=== PATIENT | female | born 1990 | race Caucasian/White ===

== ENCOUNTER 2019-12-02 08:31 | Emergency (ER) | payer OTHER ==
[2019-12-02 08:37] VITALS: BP 160/97; PULSE 67; RESP 18; TEMP 98
--- NOTE | 2019-12-02 08:41 | ED ---
Recheck HPI - General Chief Complaint: Recheck/Abnormal Lab/Rx Stated Complaint: [facility] - sent for Covid testing Time Seen by Provider: 12/02/19 08:39 Source: patient, RN notes reviewed Mode of arrival: ambulatory Limitations: no limitations - History of Present Illness Initial Comments: 29-year-old female presents emergency Department chief complaint of needing Covid testing. Patient sent by work for Covid testing. Patient was exposed secondary. Patient is asymptomatic. Patient may not return to work until tested. Patient offers no other complaints. - Related Data Allergies Allergy/AdvReac Type Severity Reaction Status Date / Time No Known Allergies Allergy Verified 12/02/19 08:37 Review of Systems ROS Statement: Those systems with pertinent positive or pertinent negative responses have been documented in the HPI. ROS Other: All systems not noted in ROS Statement are negative. Past Medical History Past Medical History: No Reported History History of Any Multi-Drug Resistant Organisms: None Reported Past Surgical History: No Surgical Hx Reported Past Psychological History: No Psychological Hx Reported Smoking Status: Never smoker Past Alcohol Use History: Occasional Past Drug Use History: None Reported General Exam Limitations: no limitations General appearance: alert, in no apparent distress Head exam: Present: atraumatic, normocephalic, normal inspection Eye exam: Present: normal appearance, PERRL, EOMI. Absent: scleral icterus, conjunctival injection, periorbital swelling Neck exam: Present: normal inspection. Absent: tenderness, meningismus, lymphadenopathy Respiratory exam: Present: normal lung sounds bilaterally. Absent: respiratory distress, wheezes, rales, rhonchi, stridor Cardiovascular Exam: Present: regular rate, normal rhythm, normal heart sounds. Absent: systolic murmur, diastolic murmur, rubs, gallop, clicks Course Vital Signs 12/02/19 08:32 Temperature 98 F Pulse Rate 67 Respiratory 18 Rate Blood Pressure 160/97 O2 Sat by Pulse 97 Oximetry Medical Decision Making - Medical Decision Making CoVID testing was performed. Pending results patient informed that it takes several days. Disposition Clinical Impression: COVID-19 virus test result unknown Disposition: HOME SELF-CARE Condition: Stable Additional Instructions: Please return to the Emergency Department if symptoms worsen or any other concerns. Is patient prescribed a controlled substance at d/c from ED?: No Referrals: None,Stated [Primary Care Provider] - 1-2 days Time of Disposition: 08:41
== END 2019-12-02 08:42 | disposition home or self-care (01) ==
LOC: EC 08:31
DX: Z03.818 Encounter for observation for suspected exposure to other biological agents ruled out (principal)
CPT/HCPCS: 99283; U0003

== ENCOUNTER 2020-11-21 16:43 | Emergency (ER) | payer BC ==
[2020-11-21 17:13] VITALS: RESP 18
[2020-11-21 18:30] LABS: Basophils % (A) 0 %; Eosinophils # (A) 0.1 k/uL (0-0.7); Eosinophils % (A) 1 %; HCT 41.5 % (34.0-46.0); HGB 14.2 gm/dL (11.4-16.0); Lymphocytes # (A) 2.3 k/uL (1.0-4.8); Lymphocytes % (A) 37 %; MCH 30.5 pg (25.0-35.0); MCHC 34.2 g/dL (31.0-37.0); MCV 89.5 fL (80.0-100.0); Mean Platelet Volume 7.8; Monocytes # (A) 0.4 k/uL (0-1.0); Monocytes % (A) 6 %; Neutrophils # (A) 3.4 k/uL (1.3-7.7); Neutrophils % (A) 54 %; Platelet Count 252 k/uL (150-450); RBC 4.64 m/uL (3.80-5.40); WBC 6.2 k/uL (3.8-10.6)
[2020-11-21 18:39] LABS: Prothrombin Time 10.9 sec (9.0-12.0)
[2020-11-21 18:40] LABS: ALT 15 U/L (4-34); AST 21 U/L (14-36); African American GFR (CKD) >90 (>60 ml/min/1.73 sqM); Albumin 4.4 g/dL (3.5-5.0); Alkaline Phosphatase 54 U/L (38-126); Anion Gap 9 mmol/L; Blood Urea Nitrogen 11 mg/dL (7-17); Calcium 9.6 mg/dL (8.4-10.2); Carbon Dioxide 26 mmol/L (22-30); Chloride 104 mmol/L (98-107); Glucose 91 mg/dL (74-99); Non-African American GFR(CKD) 88 (>60 ml/min/1.73 sqM); Partial Thromboplastin Time 24.4 sec (22.0-30.0); Potassium 4.3 mmol/L (3.5-5.1); Sodium 139 mmol/L (137-145); Total Bilirubin 0.9 mg/dL (0.2-1.3); Total Protein 7.4 g/dL (6.3-8.2)
--- NOTE | 2020-11-21 18:57 | XR ---
EXAMINATION TYPE: XR chest 2V DATE OF EXAM: 11/21/2020 COMPARISON: NONE HISTORY: Syncope TECHNIQUE: Frontal and lateral views of the chest are obtained. FINDINGS: There is no focal air space opacity, pleural effusion, or pneumothorax seen. The cardiome diastinal silhouette size is within normal limits. The osseous structures are intact. IMPRESSION: No acute cardiopulmonary process.
--- NOTE | 2020-11-21 18:58 | ED ---
General Adult HPI - General Chief complaint: Syncope Stated complaint: syncope, hit head Time Seen by Provider: 11/21/20 18:56 Source: patient, family Mode of arrival: ambulatory Limitations: no limitations - History of Present Illness Initial comments: Patient presents to the ED with her significant other for evaluation. Patient states that she was outside tailgating for the [employer] game at about 11 AM this morning when she became lightheaded and "fainted". Patient's significant other states that he was with the patient and witnessed her syncopal episode. He states that she hit her head on the car and then on the ground as she fell down. He states that her LOC was very brief, and lasted just a few seconds. Patient states that she has had a headache and nausea since this incident. Patient states that she was out in the heat and did have a couple of alcoholic beverages when she had her syncopal episode earlier today. Patient denies any other site of pain, fever or chills, focal numbness/weakness/neuro deficit, visual changes, speech difficulty, neck/back/extremity pain, chest pain, dyspnea, cough or cold symptoms, palpitations, abdominal pain, vomiting or diarrhea, bloody or melanotic stool, dysuria or urinary symptoms, or any other symptoms or complaints. - Related Data Home Medications Medication Instructions Recorded Confirmed No Known Home Medications 11/21/20 11/21/20 Allergies Allergy/AdvReac Type Severity Reaction Status Date / Time No Known Allergies Allergy Verified 11/21/20 20:09 Review of Systems ROS Statement: Those systems with pertinent positive or pertinent negative responses have been documented in the HPI. ROS Other: All systems not noted in ROS Statement are negative. Past Medical History Past Medical History: No Reported History History of Any Multi-Drug Resistant Organisms: None Reported Past Surgical History: No Surgical Hx Reported Past Psychological History: No Psychological Hx Reported Smoking Status: Never smoker Past Alcohol Use History: Occasional Past Drug Use History: Marijuana General Exam Limitations: no limitations General appearance: alert, in no apparent distress Head exam: Present: atraumatic, normocephalic Eye exam: Present: normal appearance, PERRL, EOMI ENT exam: Present: mucous membranes moist Neck exam: Present: other (Trachea is in midline). Absent: tenderness Respiratory exam: Present: normal lung sounds bilaterally. Absent: respiratory distress, wheezes, rales, rhonchi, stridor Cardiovascular Exam: Present: regular rate, normal rhythm, normal heart sounds, other (Normal radial pulses bilaterally) GI/Abdominal exam: Present: soft. Absent: distended, tenderness, guarding Extremities exam: Present: full ROM. Absent: tenderness, pedal edema, calf tenderness Back exam: Present: full ROM. Absent: tenderness Neurological exam: Present: alert, oriented X3, CN II-XII intact. Absent: motor sensory deficit Psychiatric exam: Present: normal affect, normal mood Skin exam: Present: warm, dry, intact, normal color Course Vital Signs 11/21/20 11/21/20 17:11 19:35 Temperature 98.2 F Pulse Rate 71 64 Respiratory 18 18 Rate Blood Pressure 131/83 151/101 O2 Sat by Pulse 98 98 Oximetry - Reevaluation(s) Reevaluation #1: 11/21/20 20:58 Patient denies development of any new symptoms while in the ED. Patient remains alert and breathing comfortably. Patient and significant other are aware the patient's test results, and patient feels comfortable going home with her significant other at this time. Patient was counseled about syncope and head injuries, and she was clearly explained return and follow-up instructions. Patient was instructed to follow up closely with her primary care provider. Patient feels comfortable with this plan. EKG Findings - EKG Comments: EKG Findings:: Normal sinus rhythm, ventricular rate of 72 bpm, no ectopy, normal TX and QRS intervals, normal QT interval, normal axis, no ST or T-wave abnormality Medical Decision Making - Medical Decision Making Patient's labs and imaging studies, including head CT imaging, are all negative. Patient's EKG is unremarkable. I suspect a benign etiology of the patient's syncopal episode, and I do not suspect an emergent medical condition at this time. Patient was counseled about head injuries and syncope. Will discharge patient home with her significant other at this time. - Lab Data Result diagrams: 11/21/20 18:10 11/21/20 18:10 Lab Results 11/21/20 11/21/20 11/21/20 Range/Units 18:10 18:10 18:10 WBC 6.2 (3.8-10.6) k/uL RBC 4.64 (3.80-5.40) m/uL Hgb 14.2 (11.4-16.0) gm/dL Hct 41.5 (34.0-46.0) % MCV 89.5 (80.0-100.0) fL MCH 30.5 (25.0-35.0) pg MCHC 34.2 (31.0-37.0) g/dL RDW 12.0 (11.5-15.5) % Plt Count 252 (150-450) k/uL MPV 7.8 Neutrophils % 54 % Lymphocytes % 37 % Monocytes % 6 % Eosinophils % 1 % Basophils % 0 % Neutrophils # 3.4 (1.3-7.7) k/uL Lymphocytes # 2.3 (1.0-4.8) k/uL Monocytes # 0.4 (0-1.0) k/uL Eosinophils # 0.1 (0-0.7) k/uL Basophils # 0.0 (0-0.2) k/uL PT 10.9 (9.0-12.0) sec INR 1.0 (<1.2) APTT 24.4 (22.0-30.0) sec D-Dimer <0.17 (<0.60) mg/L FEU Sodium 139 (137-145) mmol/L Potassium 4.3 (3.5-5.1) mmol/L Chloride 104 (98-107) mmol/L Carbon Dioxide 26 (22-30) mmol/L Anion Gap 9 mmol/L BUN 11 (7-17) mg/dL Creatinine 0.88 (0.52-1.04) mg/dL Est GFR (CKD-EPI)AfAm >90 (>60 ml/min/1.73 sqM) Est GFR (CKD-EPI)NonAf 88 (>60 ml/min/1.73 sqM) Glucose 91 (74-99) mg/dL Calcium 9.6 (8.4-10.2) mg/dL Total Bilirubin 0.9 (0.2-1.3) mg/dL AST 21 (14-36) U/L ALT 15 (4-34) U/L Alkaline Phosphatase 54 (38-126) U/L Troponin I (0.000-0.034) ng/mL Total Protein 7.4 (6.3-8.2) g/dL Albumin 4.4 (3.5-5.0) g/dL Urine Color Urine Appearance (Clear) Urine pH (5.0-8.0) Ur Specific Mcintosh (1.001-1.035) Urine Protein (Negative) Urine Glucose (UA) (Negative) Urine Ketones (Negative) Urine Blood (Negative) Urine Nitrite (Negative) Urine Bilirubin (Negative) Urine Urobilinogen (<2.0) mg/dL Ur Leukocyte Esterase (Negative) Urine HCG, Qual (Not Detectd) 11/21/20 11/21/20 11/21/20 Range/Units 18:10 19:27 19:27 WBC (3.8-10.6) k/uL RBC (3.80-5.40) m/uL Hgb (11.4-16.0) gm/dL Hct (34.0-46.0) % MCV (80.0-100.0) fL MCH (25.0-35.0) pg MCHC (31.0-37.0) g/dL RDW (11.5-15.5) % Plt Count (150-450) k/uL MPV Neutrophils % % Lymphocytes % % Monocytes % % Eosinophils % % Basophils % % Neutrophils # (1.3-7.7) k/uL Lymphocytes # (1.0-4.8) k/uL Monocytes # (0-1.0) k/uL Eosinophils # (0-0.7) k/uL Basophils # (0-0.2) k/uL PT (9.0-12.0) sec INR (<1.2) APTT (22.0-30.0) sec D-Dimer (<0.60) mg/L FEU Sodium (137-145) mmol/L Potassium (3.5-5.1) mmol/L Chloride (98-107) mmol/L Carbon Dioxide (22-30) mmol/L Anion Gap mmol/L BUN (7-17) mg/dL Creatinine (0.52-1.04) mg/dL Est GFR (CKD-EPI)AfAm (>60 ml/min/1.73 sqM) Est GFR (CKD-EPI)NonAf (>60 ml/min/1.73 sqM) Glucose (74-99) mg/dL Calcium (8.4-10.2) mg/dL Total Bilirubin (0.2-1.3) mg/dL AST (14-36) U/L ALT (4-34) U/L Alkaline Phosphatase (38-126) U/L Troponin I <0.012 (0.000-0.034) ng/mL Total Protein (6.3-8.2) g/dL Albumin (3.5-5.0) g/dL Urine Color Light Yellow Urine Appearance Clear (Clear) Urine pH 7.5 (5.0-8.0) Ur Specific Mcintosh 1.011 (1.001-1.035) Urine Protein Negative (Negative) Urine Glucose (UA) Negative (Negative) Urine Ketones Negative (Negative) Urine Blood Negative (Negative) Urine Nitrite Negative (Negative) Urine Bilirubin Negative (Negative) Urine Urobilinogen <2.0 (<2.0) mg/dL Ur Leukocyte Esterase Negative (Negative) Urine HCG, Qual Not Detected (Not Detectd) - Radiology Data Radiology results: report reviewed (Chest x-ray: No acute cardiopulmonary p rocess; noncontrast head CT is negative) Disposition Clinical Impression: Syncope, Head injury Disposition: HOME SELF-CARE Condition: Stable Instructions (If sedation given, give patient instructions): Syncope (ED), Head Injury (ED) Additional Instructions: Return to the ER immediately should you develop new or worsening symptoms, fainting again, a fever, persistent vomiting, shortness of breath, or new or worsening symptoms. Follow up closely with your primary care provider. Is patient prescribed a controlled substance at d/c from ED?: No Referrals: None,Stated [Primary Care Provider] - 1-2 days Madeline Cerda MD [REFERRING] - 1-2 days Time of Disposition: 21:01
[2020-11-21 19:38] LABS: Appearance,Urine Clear (Clear); Bilirubin,Urine Negative (Negative); Blood,Urine Negative (Negative); Color,Urine Light Yellow; Glucose,Urine (UA) Negative (Negative); Ketones,Urine Negative (Negative); Leukocyte Esterase,Urine Negative (Negative); Nitrite,Urine Negative (Negative); PH, Urine 7.5 (5.0-8.0); Protein,Urine Negative (Negative); Specific Gravity,Urine 1.011 (1.001-1.035); Urobilinogen,Urine <2.0 mg/dL (<2.0)
--- NOTE | 2020-11-21 20:14 | CT ---
EXAMINATION TYPE: CT brain wo con DATE OF EXAM: 11/21/2020 COMPARISON: None available HISTORY: syncope, hit head CT DLP: 1039.4 mGycm. Automated Exposure Control for Dose Reduction was Utilized. TECHNIQUE: Multiple contiguous axial CT images of the head were performed from the skull base through the vertex without the administration of intravenous contrast. 2-D sagittal and coronal reformats we re obtained. FINDINGS: No acute intracranial hemorrhage, mass effect, or midline shift. The ventricles and sulci are within normal limits in size. Saenz-white differentiation is preserved. No CT evidence of acute l arge vessel territorial ischemia. Calvarium appears intact. The globes are intact and the visualized sinuses are clear. IMPRESSION: Negative contrast enhanced head CT exam.
[2020-11-21 21:00] VITALS: BP 127/86; PULSE 59
[2020-11-21 21:21] VITALS: TEMP 97.7
== END 2020-11-21 21:18 | disposition home or self-care (01) ==
LOC: EC 16:43
DX: S09.90XA Unspecified injury of head, initial encounter (principal); F12.90 Cannabis use, unspecified, uncomplicated; W01.198A Fall on same level from slipping, tripping and stumbling with subsequent striking against other object, initial encounter
CPT/HCPCS: 36415; 70450; 71046; 80053; 81003; 81025; 84484; 85025; 85379; 85610; 85730; 99285

== ENCOUNTER 2023-03-09 22:19 | Inpatient (IN) | payer BC ==
[2023-03-09 23:33] LABS: ALT 22 U/L (4-34); AST 25 U/L (14-36); African American GFR (CKD) >90 (>60 ml/min/1.73 sqM); Blood Urea Nitrogen 11 mg/dL (7-17); LDH 209 U/L (120-246); Non-African American GFR(CKD) >90 (>60 ml/min/1.73 sqM); Uric Acid 6.7 mg/dL (3.7-7.4)
[2023-03-09 23:44] LABS: INR 0.8 (<1.2); Partial Thromboplastin Time 23.7 sec (22.0-30.0); Prothrombin Time 9.3 sec (10.0-12.5)
[2023-03-09 23:51] LABS: Basophils % (A) 0 %; Eosinophils # (A) 0.1 k/uL (0-0.7); Eosinophils % (A) 1 %; HCT 39.4 % (34.0-46.0); HGB 13.4 gm/dL (11.4-16.0); Lymphocytes # (A) 2.4 k/uL (1.0-4.8); Lymphocytes % (A) 19 %; MCH 30.7 pg (25.0-35.0); MCV 90.3 fL (80.0-100.0); Mean Platelet Volume 9.1; Monocytes # (A) 0.9 k/uL (0-1.0); Monocytes % (A) 7 %; Neutrophils # (A) 9.3 k/uL (1.3-7.7); Neutrophils % (A) 72 %; Platelet Count 264 k/uL (150-450); RBC 4.37 m/uL (3.80-5.40); RDW 12.9 % (11.5-15.5); WBC 12.9 k/uL (3.8-10.6)
[2023-03-09 23:55] LABS: Appearance,Urine Clear (Clear); Bacteria,Urine Occasional /hpf; Bilirubin,Urine Negative (Negative); Blood,Urine Small (Negative); Color,Urine Colorless; Glucose,Urine (UA) Negative (Negative); Ketones,Urine Trace (Negative); Leukocyte Esterase,Urine Negative (Negative); Mucus,Urine Rare /hpf; Nitrite,Urine Negative (Negative); Protein,Urine Negative (Negative); Specific Gravity,Urine 1.011 (1.001-1.035); Squamous Epithelial Cell,Urine 1 /hpf (0-4); Urobilinogen,Urine <2.0 mg/dL (<2.0); WBC,Urine <1 /hpf (0-5)
[2023-03-10 00:14] LABS: Creatinine,Urine Random 59.2 mg/dL; Protein/Creatinine Ratio,Urine 0.186
[2023-03-10] MEDS ORDERED: CARBOPROST TROMETHAMINE 250 MCG/ML 1 ML AMP IM PRN (00:42)
[2023-03-10] MEDS ORDERED: OXYTOCIN 10 UNIT/ML 1 ML VIAL IM PRN (00:42)
[2023-03-10] MEDS ORDERED: miSOPROStoL 200 MCG TAB PO PRN (00:42)
[2023-03-10] MEDS ORDERED: TRANEXAMIC 1,000 MG/100ML-NACL 1,000 MG in EMPTY BAG 1 BAG IV PRN (00:42)
[2023-03-10] MEDS ORDERED: TERBUTALINE 1 MG/ML VIAL SQ PRN (00:42)
[2023-03-10] MEDS ORDERED: METHYLERGONOVINE 0.2 MG/ML 1 ML AMP IM PRN (00:42)
[2023-03-10] MEDS ORDERED: LIDOCAINE 0.5% (PF) 5 MG/ML (50 ML SDV) SQ PRN (00:42)
[2023-03-10] MEDS ORDERED: OXYTOCIN 30 UNITS/500 ML NS 30 UNIT in SALINE 1 500ML.BAG IV SCH (00:45)
[2023-03-10 00:59] VITALS: RESP 16
[2023-03-10] MEDS: LACTATED RINGERS 1,000 ML IV SCH ×2 (01:02→20:11)
[2023-03-10] MEDS ORDERED: NALBUPHINE 10 MG/ML (10 ML MDV) IV PRN (01:20)
[2023-03-10] MEDS ORDERED: ROPIVACAINE 5 MG/ML 30 ML VIAL ONE (02:18)
[2023-03-10] MEDS ORDERED: fentaNYL (PF) 50 MCG/ML 5 ML AMP ONE (02:18)
[2023-03-10] MEDS ORDERED: SODIUM CHLORIDE 0.9% 250 ML BAG ONE (02:18)
--- NOTE | 2023-03-10 04:12 | P.HPOB ---
History of Present Illness H&P Date: 03/10/23 Chief Complaint: Contractions Ms. Kaplan is a 32 year old at 40 weeks and 1 day with EDC of 03/09/2023 by LMP consistent with 9 week US who presents in labor. She made change from 3 to 4 centimeters while in triage. She is being admitted for pitocin augmentation and delivery. The has been complicated by gestational hypertension. In triage today, her first blood pressure is elevated 150s/90. She denies headache, visual disturbances, or right upper quadrant pain. Of note, the patient also had a LEEP procedure in 2021 for cervical dysplasia. At 36 weeks the fetus measured in the 62%ile and is estimated to weight 8 pounds 12 ounces work-up: blood type A positive, antibody negative, rubella immune, VDRL non-reactive, HBsAg negative, HIV negative, HCV Ab negative, gonorrhea negative, chlamydia negative, 1 hour GTT within normal limits, GBS negative. s/p TDap 01/15/2023. Past Medical History Past Medical History: No Reported History History of Any Multi-Drug Resistant Organisms: None Reported Past Surgical History: No Surgical Hx Reported Past Anesthesia/Blood Transfusion Reactions: No Reported Reaction Past Psychological History: No Psychological Hx Reported Smoking Status: Never smoker Past Alcohol Use History: Occasional Past Drug Use History: None Reported, Marijuana Medications and Allergies Home Medications Medication Instructions Recorded Confirmed Type Aspirin 81 mg PO DAILY 02/11/23 03/09/23 History Vit No.180/Iron/Folic 1 tab PO DAILY 02/11/23 03/09/23 History [ Plus Vitamin-Mineral] Allergies Allergy/AdvReac Type Severity Reaction Status Date / Time No Known Allergies Allergy Verified 02/27/23 10:39 Exam Vital Signs Temp Pulse Resp BP Pulse Ox 03/10/23 00:41 98.3 F 80 16 136/92 100 03/09/23 22:20 98.2 F 77 16 136/92 100 Intake and Output 03/09/23 03/09/23 03/10/23 14:59 22:59 06:59 Other: Weight 79.379 kg 79.379 kg Focused physical exam is performed. This is a healthy-appearing in no apparent distress. Breathing is non-labored. Abdomen is gravid and non-tender. Cervical exam is 9 cm, 100 effacement, -1 station. AROM is undertaken with meconium stained fluid noted. Extremities non-tender and non-edematous. heart tones are Category I and tocometer is graphing contractions every 2- 4 minutes. Results Result Diagrams: 03/09/23 23:00 03/09/23 23:00 Abnormal Lab Results - Last 24 Hours (Table) 03/09/23 03/09/23 03/09/23 Range/Units 23:00 23:00 23:00 WBC 12.9 H (3.8-10.6) k/uL Neutrophils # 9.3 H (1.3-7.7) k/uL PT 9.3 L (10.0-12.5) sec Urine Ketones Trace H (Negative) Urine Blood Small H (Negative) Urine Bacteria Occasional H (None) /hpf Urine Mucus Rare H (None) /hpf Assessment and Plan Assessment: 32 year old at 40 weeks and 1 day in labor Plan: Admit, clear liquid diet, pitocin augmentation, epidural prn, continuous EFM and tocometer, close monitoring of patient. Anticipate vaginal delivery. Time with Patient: Less than 30
[2023-03-10] MEDS ORDERED: diphenhydrAMINE 25 MG CAP PO PRN (06:11)
[2023-03-10] MEDS ORDERED: diphenhydrAMINE 50 MG/ML 1 ML VIAL IVP PRN ×2 (06:11)
[2023-03-10] MEDS ORDERED: HYDROCORTISONE 2.5% RECTAL CREAM 30 GM TUBE RECTAL PRN (06:11)
[2023-03-10] MEDS ORDERED: diphenhydrAMINE 50 MG CAP PO PRN (06:11)
[2023-03-10] MEDS ORDERED: SIMETHICONE 80 MG CHEWABLE PO PRN (06:11)
[2023-03-10] MEDS ORDERED: ZOLPIDEM 5 MG TAB PO PRN (06:11)
[2023-03-10] MEDS ORDERED: BENZOCAINE/MENTHOL SPRAY 1 GM/SPRAY AEROSOL TOPICAL PRN (06:11)
[2023-03-10] MEDS ORDERED: LANOLIN CREAM 5 GM TUBE TOPICAL PRN (06:11)
--- NOTE | 2023-03-10 06:11 | P.PROBDLV ---
Vaginal Delivery Note - . Vaginal Delivery Note: DATE OF SERVICE: 03/10/2023 PROCEDURE: Vaginal delivery complicated by shoulder dystocia ATTENDING: Dr. Becki Burns MD ESTIMATED BLOOD LOSS: 300 mL FINDINGS: VMI, Apgars 7/9. Weight 8 pounds and 5 ounces (3775 grams) PROCEDURE: Ms. Kaplan is a 32 year old at 40 weeks and 1 days presenting to labor and delivery in labor. The has been complicated by gestational hypertension. For further details, please review the admitting H&P. Pitocin augmentation was started and AROM was undertaken at 350 for clear fluid. The patient was completely dilated at 501. The patient pushed effectively. The head was delivered with the turtle sign noted. A 3-minute shoulder dystocia was encountered. Please see the separate should dystocia documentation for details about the maneuvers performed to deliver the . A viable male infant was delivered at 538. The infant was placed on the maternal abdomen and bulb suctioned. The was noted to be spontaneously crying. Cord was clamped and cut after a 30-second delay. The infant was handed off to the pediatric team. Both arms were noted to have full range of movement and clavicles were palpated to be intact. Placenta was delivered whole with gentle cord traction at 541. Oxytocin was started to facilitate uterine tone. Uterine fundus was found to be firm and below the umbilicus upon fundal massage. Thorough examination of the cervix, vagina, periurethral area, and perineum revealed a second degree laceration and a superficial left labial laceration. These lacerations were repaired in the usual fashion with 2-0 Vicryl and 3-0 Vicryl respectively. The patient is stable and allowed to begin the bonding process.
[2023-03-10] MEDS: SENNOSIDES-DOCUSATE SODIUM 1 EACH TAB PO SCH ×2 (09:09→19:50)
[2023-03-10] MEDS: IBUPROFEN 600 MG TAB PO PRN ×2 (11:48→22:20)
[2023-03-10] MEDS: ACETAMINOPHEN TAB 325 MG TAB PO PRN (16:15)
[2023-03-11] MEDS: ACETAMINOPHEN TAB 325 MG TAB PO PRN ×2 (03:06→10:19)
[2023-03-11] MEDS: LACTATED RINGERS 1,000 ML IV SCH ×2 (06:10→11:27)
[2023-03-11 06:15] LABS: Basophils % (A) 0 %; Eosinophils # (A) 0.1 k/uL (0-0.7); Eosinophils % (A) 0 %; HCT 35.8 % (34.0-46.0); HGB 11.9 gm/dL (11.4-16.0); Lymphocytes # (A) 2.7 k/uL (1.0-4.8); Lymphocytes % (A) 19 %; MCH 30.6 pg (25.0-35.0); MCHC 33.3 g/dL (31.0-37.0); Mean Platelet Volume 8.8; Monocytes # (A) 0.8 k/uL (0-1.0); Monocytes % (A) 6 %; Neutrophils % (A) 73 %; Platelet Count 209 k/uL (150-450); RBC 3.89 m/uL (3.80-5.40); WBC 13.8 k/uL (3.8-10.6)
[2023-03-11] MEDS: IBUPROFEN 600 MG TAB PO PRN (06:27)
[2023-03-11] MEDS: SENNOSIDES-DOCUSATE SODIUM 1 EACH TAB PO SCH (08:04)
[2023-03-11 08:19] VITALS: BP 124/82; PULSE 67; TEMP 97.9
== END 2023-03-11 12:05 | disposition home or self-care (01) | DRG 807 ==
LOC: FBPOP 22:19 → 4FBP 03-10 00:10
PROVIDERS: ADMIT Obstetrics & Gynecology; ATTEND Obstetrics & Gynecology
PROC: 10E0XZZ Delivery of Products of Conception, External Approach (ICD-10-PCS; principal; 2023-03-10)
PROC: 0KQM0ZZ Repair Perineum Muscle, Open Approach (ICD-10-PCS; 2023-03-10)
PROC: 10907ZC Drainage of Amniotic Fluid, Therapeutic from Products of Conception, Via Natural or Artificial Opening (ICD-10-PCS; 2023-03-10)
PROC: 3E033VJ Introduction of Other Hormone into Peripheral Vein, Percutaneous Approach (ICD-10-PCS; 2023-03-10)
DX: O13.4 Gestational [pregnancy-induced] hypertension without significant proteinuria, complicating childbirth (principal); Z37.0 Single live birth; O48.0 Post-term pregnancy; O66.0 Obstructed labor due to shoulder dystocia; O70.1 Second degree perineal laceration during delivery; Z3A.40 40 weeks gestation of pregnancy; Z79.82 Long term (current) use of aspirin; Z87.410 Personal history of cervical dysplasia
CPT/HCPCS: 36415; 59025; 81001; 82565; 82570; 83615; 84156; 84450; 84460; 84520; 84550; 85025; 85610; 85730; 86850; 86900; 86901; 99213